=== PATIENT | female | born 1975 | race Caucasian/White ===

== ENCOUNTER 2017-06-20 19:08 | Emergency (ER) | payer OTHER ==
[~2017-06-20] VITALS: Ht 154.9 cm; Wt 50.8 kg
[~2017-06-20 19:08] MED LIST: AMOXICILLIN PO; ANTIBIOTIC PO; ERYTHROMYCIN E400 M1 PO; IBUPROFEN800 MG PO
== END 2017-06-20 22:30 | disposition home or self-care (01) ==
LOC: CFTX 19:08 → CED 19:08 → CFTX 22:15
DX: K08.89 Other specified disorders of teeth and supporting structures (principal); I10 Essential (primary) hypertension; F17.210 Nicotine dependence, cigarettes, uncomplicated; Z88.0 Allergy status to penicillin
CPT/HCPCS: 96373; 99282